=== PATIENT | female | born 1950 | race Caucasian/White ===

== ENCOUNTER 2019-12-12 18:28 | Emergency (ER) | payer MEDICARE, MEDICAID ==
[~2019-12-12] VITALS: Ht 162.6 cm; Wt 79.5 kg
[2019-12-12 18:32] VITALS: BP 173/60
--- NOTE | 2019-12-12 18:42 | NUR ---
[facility] control contacted. No recommendations as the medication is give to humans in larger doses.
--- NOTE | 2019-12-12 19:08 | NUR ---
pt denies complaint other than worry about the medication that was not intended for her.
--- NOTE | 2019-12-12 19:52 | NUR ---
PA at bedside for eval
== END 2019-12-12 20:04 | disposition home or self-care (01) ==
LOC: ER 18:28
DX: R53.83 Other fatigue (principal); T38.0X5A Adverse effect of glucocorticoids and synthetic analogues, initial encounter; Z88.5 Allergy status to narcotic agent; Z60.2 Problems related to living alone; Y92.89 Other specified places as the place of occurrence of the external cause
CPT/HCPCS: 99281; 99283

== ENCOUNTER 2020-09-05 14:21 | Emergency (ER) | payer MEDICARE, MEDICAID ==
[~2020-09-05] VITALS: Ht 162.6 cm; Wt 81.8 kg
[2020-09-05 14:34] VITALS: BP 170/73
[2020-09-05] MEDS ORDERED: proparacaine 0.5% ophthalmic drops 15ml EACHEYE ONE (15:10)
--- NOTE | 2020-09-05 16:16 | NUR ---
contacted pt's friend Joelle ([phone]) who will pick pt up ~ [phone].
== END 2020-09-05 17:33 | disposition home or self-care (01) ==
LOC: ER 14:21
DX: H53.8 Other visual disturbances (principal); Z88.6 Allergy status to analgesic agent; Z88.5 Allergy status to narcotic agent; H53.143 Visual discomfort, bilateral
CPT/HCPCS: 99282